=== PATIENT | female | born 1975 | race Caucasian/White ===

== ENCOUNTER 2016-09-12 07:07 | Emergency (ER) ==
[2016-09-12] MEDS ORDERED: D H E IV ONE (07:37)
[2016-09-12] MEDS ORDERED: REGLAN IV ONE (07:39)
[2016-09-12] MEDS ORDERED: G.I. COCKTAIL PO ONE (07:39)
--- NOTE | 2016-09-12 07:45 | PROVIDER DOCUMENTATION ---
HPI-Headache - General Chief Complaint: Headache Stated Complaint: migraine Time Seen by Provider: 09/12/16 07:31 Source: patient Allergies/Adverse Reactions: Patient Allergies Allergy/AdvReac Type Severity Reaction Status Date / Time shellfish derived Allergy Severe ANAPHYLAXIS Verified 09/12/16 08:43 egg Allergy Intermediate HIVES Verified 09/12/16 08:43 - History of Present Illness-Headache Nature of Presenting Problem: Pt has had 6 days of 7/10 right sided migraine HOLT with photophobia and nausea. She has used so much ASA/ motrin that she now has heartburn. She states that imitrex does not seem to work, but consents to a trail of DHE 45 and maybe a GONB to eradicate the HOLT Headache Location: reports: parietal Quality of Pain: reports: pressure Severity: reports: moderate Onset/Duration: reports: 6 days ago Timing: reports: still present Headache Context: denies: CO exposure, head injury, meningitis exposure Headache History: reports: frequent headaches, other (has been on topomax) Preceding Symptoms: denies: visual disturbances, scotoma, typical of previous aura(s) Headache Exacerbated by:: reports: light, noise Associated Symptoms: reports: nausea Similar Symptoms Previously?: Yes Review of Systems - Adult - REVIEW OF SYSTEMS - ADULT Constitutional: denies: chills, fever Eyes: denies: discharge, blurred vision Ears, Nose, Mouth & Throat: denies: ear pain, nose pain, hoarseness Cardiovascular: denies: chest pain, irregular heart rate, poor circulation Respiratory: denies: cough, hemoptysis, shortness of breath Gastrointestinal: reports: nausea. denies: hematemesis, difficulty swallowing, frequent heartburn Genitourinary: denies: discharge, frequent UTI's Musculoskeletal: denies: bone pain, joint pain, muscle weakness Integumentary: denies: itching, nail changes Neurological: denies: dizziness/vertigo, numbness, syncope Psychiatric: denies: emotional problems Endocrine: denies: goiter, cold intolerance, heat intolerance Hematologic/Lymphatic: denies: low blood count, lymphedema Allergic/Immunologic: denies: eczema, frequent infections, hives Past History - Adult - PAST MEDICAL HISTORY-ADULT Psychiatric: reports: anxiety Other Conditions: reports: MRSA - PRIOR SURGERIES/PROCEDURES Surgical/Procedure History: reports: hysterectomy - IMMUNIZATION STATUS Childhood Immunizations: See Nurse Assessment Flu Vaccine: See Nurse Assessment Physical Exam- Neurological - Physical Exam-Neuro General Appearance: appears well, alert, mild distress Eye Exam: bilateral eye: normal inspection, PERRL HENMT: normocephalic/atraumatic, moist mucous membranes, normal ENT inspection, TMs normal Head Injury: no evidence of injury Neck: non-tender, full range of motion, supple Respiratory: chest non-tender, normal breath sounds, no pleuratic chest pain, no respiratory distress, no accessory muscle use Cardiovascular: normal peripheral pulses, regular rate, rhythm, no edema, no gallop, no JVD, no murmur Abdominal Exam: non tender, soft, no organomegaly Lymphatic: no adenopathy Extremity: normal range of motion, non-tender, normal gait internet project manager Exam: normal hearing, normal speech, PERRL Coordination/Gait: normal gait Motor/Sensory: no motor deficit, no sensory deficit Neurologic: grossly normal, no motor/sensory deficits Integumentary: normal color, normal turgor, warm/dry Psych/Mental Status: normal mood/affect, normal thought content, normal thought process, oriented x 3 Progress - PLAN OF CARE/RESULTS Progress/Plan/Lab Results: Orders Category Date Time Status IV [Saline Loc] NOW Care 09/12/16 07:37 Inactive INFLUENZA SCREEN A/B Stat Lab 09/12/16 08:10 Completed Bupivcaine Pf0.5%/Epi 1:[id number] [Sensorcaine-Mpf 0.5%/ Med 09/12/16 08:13 Discontinued Epi 1:200,000] 5 ml INJ NOW ONE Dihydroergotamine [D.h.e. 45] Med 09/12/16 07:37 Discontinued 1 mg IV NOW ONE Hydroxyzine Pamoate [Vistaril] Med 09/12/16 08:41 Ordered 25 mg PO Q8H PRN PRN Lido/Moralez Alk/Al&mg Hydrox [G.i. Cocktail] Med 09/12/16 07:39 Discontinued 30 ml PO NOW ONE Metoclopramide [Reglan] Med 09/12/16 07:39 Discontinued 10 mg IV NOW ONE Ondansetron Odt [Zofran Odt] Med 09/12/16 08:29 Discontinued 4 mg PO NOW ONE Sertraline [Zoloft] Med 09/12/16 09:00 Ordered 50 mg PO DAILY Vital Signs Temp Pulse Resp BP Pulse Ox 09/12/16 07:12 97.8 F 67 20 134/90 100 shellfish derived Allergy (Severe, Verified 09/12/16 08:43) ANAPHYLAXIS egg Allergy (Intermediate, Verified 09/12/16 08:43) HIVES No Home Medications 09/12/16 Procedures - ADDITIONAL PROCEDURES Time-Out Verification Completed?: Yes Anesthetic: 0.5% (left GONB with 3 ml of anesthetic with relief), Bupivicaine/ Marcaine Volume of Anesthetic (ml's): 3 (ml) Departure - Departure Time of Disposition Order: 09:14 DIAGNOSIS: Migraine Qualifiers: Migraine type: without aura Status migrainosus presence: with status migrainosus Intractability: intractable Qualified Code(s): G43.011 - Migraine without aura, intractable, with status migrainosus Disposition: HOME 01 Certified Medical Emergency: Emergent Condition: Stable Additional Instructions: ED Follow Up Instructions: You have been treated by a care provider in the Emergency Department. These instructions are being provided to you so you can have an understanding of how to care for yourself upon discharge. Upon discharge from the Emergency Department, you are responsible for making arrangements for follow-up care by a physician of your choice. Take all prescribed medications as directed. Return to the Emergency Department immediately for any new or worsening symptoms. You may call the Physician Referral phone number at [phone] to obtain a list of Physicians who are taking new patients. Prescriptions: Sumatriptan Succinate [Imitrex] 50 mg PO Q2-3H PRN PRN #8 tablet PRN Reason: Headache Ondansetron [Zofran Odt] 4 mg PO 4XDAY PRN PRN #20 tab.rapdis PRN Reason: Vomiting Referrals: None,PCP [Primary Care Provider] -
[2016-09-12] MEDS ORDERED: SENSORCAINE-MPF 0.5%/EPI 1:200,000 INJ ONE (08:13)
[2016-09-12] MEDS ORDERED: ZOFRAN ODT PO ONE (08:29)
[2016-09-12] MEDS ORDERED: PATIENT'S OWN MED PO PRN (08:41)
[2016-09-12] MEDS ORDERED: SERTRALINE 50 MG PO SCH (09:00)
[2016-09-12 09:55] VITALS: BP 120/82
[2016-09-13] MEDS ORDERED: PATIENT'S OWN MED PO SCH (09:00)
== END 2016-09-12 10:00 | disposition home or self-care (01) ==
LOC: ED 07:07
DX: G43.011 Migraine without aura, intractable, with status migrainosus (principal); R51 Headache; H53.149 Visual discomfort, unspecified; R11.0 Nausea; R12 Heartburn; Z86.14 Personal history of Methicillin resistant Staphylococcus aureus infection
CPT/HCPCS: 87804; J1110; S0020